=== PATIENT | male | born 1980 | race Two or more races ===

== ENCOUNTER 2020-09-29 22:43 | Emergency (ER) | payer SELFPAY ==
[~2020-09-29] VITALS: Ht 172.7 cm; Wt 81.6 kg
[2020-09-30 00:06] VITALS: BP 129/65
== END 2020-09-30 00:05 | disposition home or self-care (01) ==
LOC: ER 22:48
DX: J02.9 Acute pharyngitis, unspecified (principal)
CPT/HCPCS: 87070; A4663